=== PATIENT | male | born 1945 | race Caucasian/White ===

== ENCOUNTER 2017-08-10 14:48 | Inpatient (IN) | payer OTHER ==
[2017-08-10] MEDS: ONDANSETRON 4 MG INJ IV (15:31)
[2017-08-10] MEDS: morphine 4 MG/ML VIAL IV ×2 (15:31→16:29)
[2017-08-10 15:35] LABS: ADD MAN DIFF? NO
[2017-08-10 15:38] LABS: BASOPHILS % 0.4 % (0.0-2.0); EOSINOPHILS # 0.1 10^3/ul (0.0-0.5); EOSINOPHILS % 1.3 % (0.0-7.0); HEMATOCRIT 45.5 % (42.0-52.0); HEMOGLOBIN 15.7 g/dl (14.0-18.0); LYMPHOCYTES # 1.9 10^3/ul (0.8-2.9); LYMPHOCYTES % 20.2 % (15.0-51.0); MEAN CORPUSCULAR HEMOGLOBIN 30.7 pg (29.0-33.0); MEAN CORPUSCULAR HGB CONC 34.5 g/dl (32.0-37.0); MEAN CORPUSCULAR VOLUME 88.9 fl (82.0-101.0); MEAN PLATELET VOLUME 10.8 fl (7.4-10.4); MONOCYTE # 0.7 10^3/ul (0.3-0.9); MONOCYTES % 7.6 % (0.0-11.0); NEUTROPHIL # 6.7 10^3/ul (1.6-7.5); NEUTROPHILS % 70.2 % (39.0-77.0); PLATELET COUNT 226 10^3/UL (140-415); RED BLOOD COUNT 5.12 10^6/ul (4.70-6.10); RED CELL DISTRIBUTION WIDTH 12.2 % (11.5-14.5)
[2017-08-10 15:38] LABS: WHITE BLOOD COUNT 9.5 10^3/ul (4.8-10.8)
[2017-08-10 15:57] LABS: INR 1.08; PROTIME 14.1 Sec (11.9-14.9); PT RATIO 1.1
[2017-08-10 15:58] LABS: PARTIAL THROMBOPLASTIN TIME 30.8 Sec (25.0-35.0)
[2017-08-10 16:07] LABS: ALANINE AMINOTRANSFERASE 36 IU/L (13-69); ALBUMIN/GLOBULIN RATIO 1.08; ALKALINE PHOSPHATASE 119 IU/L (42-121); ANION GAP 14 (8-16); ASPARTATE AMINO TRANSFERASE 22 IU/L (15-46); BILIRUBIN,INDIRECT 0.4 mg/dl (0-1.1); BILIRUBIN,TOTAL 0.4 mg/dl (0.2-1.3); BLOOD UREA NITROGEN 31 mg/dl (7-20); CALCIUM 9.3 mg/dl (8.4-10.2); CARBON DIOXIDE 26 mmol/L (21-31); CHLORIDE 103 mmol/L (97-110); CREATININE 1.14 mg/dl (0.61-1.24); GLUCOSE 121 mg/dl (70-220); LIPASE 123 U/L (23-300); SODIUM 139 mmol/L (135-144); TOTAL PROTEIN 7.7 g/dl (6.1-8.1)
[2017-08-10 16:36] LABS: TROPONIN-I < 0.012 ng/ml (0.000-0.120)
[2017-08-10] MEDS ORDERED: ACETAMINOPHEN 325 MG TAB PO ×2 (18:00→18:30)
[2017-08-10] MEDS ORDERED: ONDANSETRON 4 MG INJ IV ×2 (18:00→22:00)
[2017-08-10 18:29] LABS: ADD UMIC NO; UR ASCORBIC ACID NEGATIVE (NEGATIVE); UR BACTERIA FEW /HPF (NONE SEEN); UR BILIRUBIN (Dip) NEGATIVE (NEGATIVE); UR BLOOD (Dip) NEGATIVE (NEGATIVE); UR CALCIUM OXALATE CRYSTAL MODERATE /HPF (NONE SEEN); UR CLARITY SLIGHTLY CLOUDY (CLEAR); UR COLOR YELLOW (YELLOW); UR GLUCOSE (Dip) NEGATIVE (NEGATIVE); UR KETONES (Dip) NEGATIVE (NEGATIVE); UR LEUKOCYTE ESTERASE (Dip) NEGATIVE Leu/ul (NEGATIVE); UR MUCUS MODERATE /HPF (NONE SEEN); UR NITRITE (Dip) NEGATIVE (NEGATIVE); UR RBC 12 /HPF (0-5); UR SPECIFIC GRAVITY (Dip) 1.027 (1.003-1.030); UR TOTAL PROTEIN (Dip) NEGATIVE (NEGATIVE); UR UROBILINOGEN (Dip) 2+ mg/dL (NEGATIVE); UR WBC 2 /HPF (0-5)
[2017-08-10] MEDS ORDERED: NACL 0.9% 3 ML SYG IV (18:30)
[2017-08-10] MEDS: morphine 2 MG INJ IV (21:54)
[2017-08-10] MEDS: SOD CHLORIDE 0.9% 1,000 ML IV (21:55)
[2017-08-11] MEDS: morphine 2 MG INJ IV ×2 (02:01→08:10)
[2017-08-11 05:33] LABS: ADD MAN DIFF? NO
[2017-08-11 05:54] LABS: ANION GAP 9 (8-16); BLOOD UREA NITROGEN 29 mg/dl (7-20); CALCIUM 9.1 mg/dl (8.4-10.2); CARBON DIOXIDE 29 mmol/L (21-31); CHLORIDE 106 mmol/L (97-110); CREATININE 0.87 mg/dl (0.61-1.24); GLUCOSE 97 mg/dl (70-220); MAGNESIUM 1.8 mg/dl (1.7-2.5); PHOSPHORUS 4.8 mg/dl (2.5-4.9); POTASSIUM 4.3 mmol/L (3.5-5.1); SODIUM 140 mmol/L (135-144)
[2017-08-11 05:55] LABS: WHITE BLOOD COUNT 7.6 10^3/ul (4.8-10.8)
[2017-08-11 05:55] LABS: BASOPHIL # 0.1 10^3/ul (0.0-0.1); BASOPHILS % 0.7 % (0.0-2.0); EOSINOPHILS # 0.3 10^3/ul (0.0-0.5); EOSINOPHILS % 3.4 % (0.0-7.0); HEMATOCRIT 43.1 % (42.0-52.0); HEMOGLOBIN 14.3 g/dl (14.0-18.0); LYMPHOCYTES # 2.3 10^3/ul (0.8-2.9); LYMPHOCYTES % 30.7 % (15.0-51.0); MEAN CORPUSCULAR HGB CONC 33.2 g/dl (32.0-37.0); MEAN CORPUSCULAR VOLUME 90.5 fl (82.0-101.0); MONOCYTE # 0.8 10^3/ul (0.3-0.9); NEUTROPHIL # 4.2 10^3/ul (1.6-7.5); NEUTROPHILS % 55.1 % (39.0-77.0); PLATELET COUNT 213 10^3/UL (140-415); RED BLOOD COUNT 4.76 10^6/ul (4.70-6.10); RED CELL DISTRIBUTION WIDTH 12.3 % (11.5-14.5)
[2017-08-11 06:09] LABS: HEMOGLOBIN A1C 5.9 % (0-5.9)
[2017-08-11] MEDS: ENOXAPARIN 40 MG/0.4 ML SYG SC (09:00)
[2017-08-11] MEDS: SOD CHLORIDE 0.9% 1,000 ML IV ×2 (11:22→19:40)
[2017-08-11] MEDS ORDERED: morphine LIQ (10 MG/5 ML) CUP PO (13:00)
[2017-08-11] MEDS: HYDROCODONE/APAP (5/325) TAB PO ×2 (13:09→19:39)
[2017-08-11 14:58] LABS: ADD UMIC YES; UR ASCORBIC ACID NEGATIVE (NEGATIVE); UR BILIRUBIN (Dip) NEGATIVE (NEGATIVE); UR BLOOD (Dip) 2+ mg/dL (NEGATIVE); UR CLARITY CLEAR (CLEAR); UR COLOR YELLOW (YELLOW); UR GLUCOSE (Dip) NEGATIVE (NEGATIVE); UR KETONES (Dip) NEGATIVE (NEGATIVE); UR LEUKOCYTE ESTERASE (Dip) NEGATIVE Leu/ul (NEGATIVE); UR NITRITE (Dip) NEGATIVE (NEGATIVE); UR RBC 6 /HPF (0-5); UR SPECIFIC GRAVITY (Dip) 1.027 (1.003-1.030); UR TOTAL PROTEIN (Dip) NEGATIVE (NEGATIVE); UR UROBILINOGEN (Dip) 2+ mg/dL (NEGATIVE); UR WBC 2 /HPF (0-5)
[2017-08-12] MEDS: morphine 2 MG INJ IV (00:01)
[2017-08-12] MEDS: SOD CHLORIDE 0.9% 1,000 ML IV ×2 (00:40→12:41)
[2017-08-12] MEDS: ENOXAPARIN 40 MG/0.4 ML SYG SC (09:00)
[2017-08-12] MEDS: HYDROCODONE/APAP (5/325) TAB PO ×2 (11:15→21:02)
[2017-08-12] MEDS: TAMSULOSIN (SR) 0.4 MG CAP PO (22:47)
[2017-08-12 23:25] LABS: PROSTATE SPECIFIC ANTIGEN 3.9 ng/ml (0.0-4.0)
[2017-08-12] MEDS: IODIXANOL LOCM 100 ML BTL (23:42)
[2017-08-12] MEDS: SOD CHLORIDE 0.9% 100 ML (23:42)
[2017-08-13] MEDS: SOD CHLORIDE 0.9% 1,000 ML IV ×3 (01:44→20:00)
[2017-08-13] MEDS ORDERED: morphine 2 MG INJ IV (04:15)
[2017-08-13] MEDS: morphine 2 MG INJ IV ×2 (04:25→11:12)
[2017-08-13] MEDS: TAMSULOSIN (SR) 0.4 MG CAP PO ×2 (09:00→20:29)
[2017-08-13] MEDS: ENOXAPARIN 40 MG/0.4 ML SYG SC (09:00)
[2017-08-13] MEDS ORDERED: BUPIVACAINE 0.75%/DEXT (SPINAL) 2 ML INJ (14:48)
[2017-08-13] MEDS ORDERED: LIDOCAINE 1% (MDV) 20 ML INJ (14:50)
[2017-08-13] MEDS ORDERED: MIDAZOLAM 1 MG/ML 2 ML INJ (14:50)
[2017-08-13] MEDS ORDERED: ETOMIDATE 20 MG INJ (14:50)
[2017-08-13] MEDS ORDERED: NA BICARBONATE 8.4% 50 ML SYG (15:37)
[2017-08-13] MEDS ORDERED: LIDOCAINE 2%/EPI 30 ML INJ (15:37)
[2017-08-13] MEDS ORDERED: CEFAZOLIN 1 GM INJ (15:40)
[2017-08-13] MEDS ORDERED: FAMOTIDINE 20 MG INJ (15:44)
[2017-08-13] MEDS ORDERED: ONDANSETRON 4 MG INJ (15:44)
[2017-08-13] MEDS ORDERED: DEXAMETHASONE 4 MG/ML 1 ML INJ (15:44)
[2017-08-13] MEDS: POLYMYXIN/BACITRACIN 1L IRRIG (16:06)
[2017-08-13] MEDS ORDERED: NALOXONE (0.4 MG/ML) INJ IV (17:00)
[2017-08-13] MEDS ORDERED: ONDANSETRON 4 MG INJ IV (17:30)
[2017-08-13] MEDS ORDERED: METOCLOPRAMIDE 10 MG INJ IV (17:30)
[2017-08-13] MEDS ORDERED: EPHEDrine SULFATE 50 MG/5 ML SYG (17:42)
[2017-08-13] MEDS: CEFAZOLIN 1 GM/50 ML (PMX) 50 ML IVPB (18:28)
[2017-08-13] MEDS: HYDROmorphONE 1 MG/5 ML IV SYRINGE IV (18:39)
[2017-08-13 19:29] LABS: ADD MAN DIFF? NO
[2017-08-13 19:30] LABS: WHITE BLOOD COUNT 13.8 10^3/ul (4.8-10.8)
[2017-08-13 19:30] LABS: BASOPHILS % 0.2 % (0.0-2.0); EOSINOPHILS % 0.2 % (0.0-7.0); HEMATOCRIT 36.9 % (42.0-52.0); HEMOGLOBIN 12.1 g/dl (14.0-18.0); LYMPHOCYTES # 0.8 10^3/ul (0.8-2.9); LYMPHOCYTES % 5.9 % (15.0-51.0); MEAN CORPUSCULAR HEMOGLOBIN 30.3 pg (29.0-33.0); MEAN CORPUSCULAR HGB CONC 32.8 g/dl (32.0-37.0); MEAN CORPUSCULAR VOLUME 92.3 fl (82.0-101.0); MEAN PLATELET VOLUME 10.9 fl (7.4-10.4); MONOCYTE # 0.3 10^3/ul (0.3-0.9); MONOCYTES % 2.2 % (0.0-11.0); NEUTROPHIL # 12.6 10^3/ul (1.6-7.5); NEUTROPHILS % 91.1 % (39.0-77.0); PLATELET COUNT 192 10^3/UL (140-415); RED CELL DISTRIBUTION WIDTH 12.4 % (11.5-14.5)
[2017-08-13 19:54] LABS: ANION GAP 8 (8-16); BLOOD UREA NITROGEN 10 mg/dl (7-20); CARBON DIOXIDE 23 mmol/L (21-31); CHLORIDE 110 mmol/L (97-110); GLUCOSE 158 mg/dl (70-220); POTASSIUM 3.8 mmol/L (3.5-5.1); SODIUM 137 mmol/L (135-144)
[2017-08-13] MEDS ORDERED: NITROGLYCERIN (SL) 0.4 MG TAB SL (20:30)
[2017-08-13 21:34] LABS: TROPONIN-I < 0.012 ng/ml (0.000-0.120)
[2017-08-14] MEDS: FENTAnyl 2MCG/ML-ROPIV 0.2% 100 ML BAG EPI ×2 (01:47→09:22)
[2017-08-14] MEDS: CEFAZOLIN 1 GM/50 ML (PMX) 50 ML IVPB ×2 (01:51→10:06)
[2017-08-14] MEDS: ARTIFICIAL TEARS 15 ML OPH BOTH EYES (01:55)
[2017-08-14 05:13] LABS: ADD MAN DIFF? NO
[2017-08-14 05:16] LABS: WHITE BLOOD COUNT 9.4 10^3/ul (4.8-10.8)
[2017-08-14 05:16] LABS: BASOPHILS % 0.2 % (0.0-2.0); EOSINOPHILS % 0.1 % (0.0-7.0); HEMATOCRIT 30.4 % (42.0-52.0); LYMPHOCYTES # 1.3 10^3/ul (0.8-2.9); LYMPHOCYTES % 13.3 % (15.0-51.0); MEAN CORPUSCULAR HEMOGLOBIN 30.2 pg (29.0-33.0); MEAN CORPUSCULAR HGB CONC 32.9 g/dl (32.0-37.0); MEAN CORPUSCULAR VOLUME 91.8 fl (82.0-101.0); MEAN PLATELET VOLUME 11.4 fl (7.4-10.4); MONOCYTE # 0.8 10^3/ul (0.3-0.9); MONOCYTES % 8.8 % (0.0-11.0); NEUTROPHIL # 7.2 10^3/ul (1.6-7.5); NEUTROPHILS % 77.1 % (39.0-77.0); PLATELET COUNT 171 10^3/UL (140-415); RED BLOOD COUNT 3.31 10^6/ul (4.70-6.10); RED CELL DISTRIBUTION WIDTH 12.5 % (11.5-14.5)
[2017-08-14 05:38] LABS: INR 1.23; PROTIME 15.7 Sec (11.9-14.9); PT RATIO 1.2
[2017-08-14 05:57] LABS: ANION GAP 11 (8-16); BLOOD UREA NITROGEN 13 mg/dl (7-20); CALCIUM 8.2 mg/dl (8.4-10.2); CARBON DIOXIDE 22 mmol/L (21-31); CHLORIDE 107 mmol/L (97-110); CREATININE 0.62 mg/dl (0.61-1.24); GLUCOSE 140 mg/dl (70-220); POTASSIUM 4.6 mmol/L (3.5-5.1); SODIUM 135 mmol/L (135-144)
[2017-08-14] MEDS: SOD CHLORIDE 0.9% 1,000 ML IV ×3 (06:25→19:17)
[2017-08-14] MEDS: ENOXAPARIN 40 MG/0.4 ML SYG SC (09:00)
[2017-08-14] MEDS: TAMSULOSIN (SR) 0.4 MG CAP PO ×2 (09:27→19:58)
[2017-08-14] MEDS: morphine 2 MG INJ IV ×2 (16:34→19:57)
[2017-08-14] MEDS: DOCUSATE SODIUM 100 MG CAP PO (19:57)
[2017-08-14] MEDS: BISACODYL (EC) 5 MG TAB PO (19:57)
[2017-08-14] MEDS: HYDROCODONE/APAP (5/325) TAB PO (23:24)
[2017-08-15] MEDS: morphine 2 MG INJ IV (03:43)
[2017-08-15 05:41] LABS: ADD MAN DIFF? NO
[2017-08-15 05:52] LABS: BASOPHILS % 0.2 % (0.0-2.0); EOSINOPHILS % 0.4 % (0.0-7.0); HEMATOCRIT 27.5 % (42.0-52.0); HEMOGLOBIN 9.4 g/dl (14.0-18.0); LYMPHOCYTES # 1.7 10^3/ul (0.8-2.9); LYMPHOCYTES % 20.1 % (15.0-51.0); MEAN CORPUSCULAR HEMOGLOBIN 30.6 pg (29.0-33.0); MEAN CORPUSCULAR HGB CONC 34.2 g/dl (32.0-37.0); MEAN CORPUSCULAR VOLUME 89.6 fl (82.0-101.0); MEAN PLATELET VOLUME 11.3 fl (7.4-10.4); MONOCYTE # 0.9 10^3/ul (0.3-0.9); MONOCYTES % 11.1 % (0.0-11.0); NEUTROPHIL # 5.7 10^3/ul (1.6-7.5); NEUTROPHILS % 67.8 % (39.0-77.0); PLATELET COUNT 154 10^3/UL (140-415); RED BLOOD COUNT 3.07 10^6/ul (4.70-6.10); RED CELL DISTRIBUTION WIDTH 12.5 % (11.5-14.5)
[2017-08-15 05:52] LABS: WHITE BLOOD COUNT 8.4 10^3/ul (4.8-10.8)
[2017-08-15 06:10] LABS: INR 1.38; PROTIME 17.2 Sec (11.9-14.9); PT RATIO 1.3
[2017-08-15] MEDS: ENOXAPARIN 40 MG/0.4 ML SYG SC (09:00)
[2017-08-15] MEDS: TAMSULOSIN (SR) 0.4 MG CAP PO (09:46)
[2017-08-15] MEDS: HYDROCODONE/APAP (5/325) TAB PO ×2 (12:52→20:32)
[2017-08-15] MEDS: MAGNESIUM HYDROXIDE 30ML CUP PO (17:05)
[2017-08-15] MEDS ORDERED: morphine LIQ (10 MG/5 ML) CUP PO (21:00)
== END 2017-08-15 20:45 | DRG 470 ==
LOC: E/R 14:48 → MS1 17:47
PROC: 0SRR0JA Replacement of Right Hip Joint, Femoral Surface with Synthetic Substitute, Uncemented, Open Approach (ICD-10-PCS; principal; 2017-08-13 14:30)
DX: S72.011A Unspecified intracapsular fracture of right femur, initial encounter for closed fracture (principal); Z72.0 Tobacco use; W13.4XXA Fall from, out of or through window, initial encounter; R31.0 Gross hematuria; N40.1 Benign prostatic hyperplasia with lower urinary tract symptoms
CPT/HCPCS: 70450; 71045; 72170; 73530; 73700; 74178; 80048; 80053; 81001; 81003; 82306; 83036; 83690; 83735; 84100; 84153; 84154; 84484; 85025; 85610; 85730; 86850; 86900; 86901; 86920; 87081; 87086; 88104; 88304; 88311; 93005; 96374; 96375; 96376; 97110; 97116; 97163; 99285-25